=== PATIENT | female | born 2000 | race Two or more races ===

== ENCOUNTER 2024-06-16 06:13 | Emergency (ER) | payer MEDICAID, SELFPAY ==
[2024-06-16 06:15] VITALS: BMI 20.5
[2024-06-16 06:22] VITALS: BP 143/91; PULSE 71; RESP 18; TEMP 36.4; O2SAT 99
--- NOTE | 2024-06-16 06:28 | EDNOTE_ITS ---
<Statement entered by Jayashree Rodríguez MD - 06/16/24 17:31> As co-signing physician, I was present and available for consult prn. I concur with the plan and care as documented by the midlevel provider. ED Female Urogenital RME/HPI General Chief complaint: Urogenital-Female Stated complaint: PAINFUL URINATION Time Seen by Provider: 06/16/24 06:15 Source: patient Arrival date/time: 06/16/24 06:13 23-year-old female with no known medical history presents to the emergency room with a chief complaint of dysuria x 6 days. Patient states she was seen here a week ago for the same complaints was discharged with a UTI. Patient states her symptoms have returned. Mode of arrival: ambulatory Limitations: no limitations Related Data Previous Rx's ?Medication ?Instructions ?Recorded phenazopyridine 100 mg tablet 100 mg PO TID PRN pain # 12 tabs 06/16/24 sulfamethoxazole 800 1 tab PO BID #14 tabs mg-trimethoprim 160 mg tablet (Bactrim DS) Allergies Allergy/AdvReac Type Severity Reaction Status Date / Time No Known Allergies Allergy Verified 06/16/24 06:15 Review of Systems Review of Systems Systems Reviewed: All systems reviewed, normal except as documented Constitutional Constitutional: Reports system reviewed and no additional complaints, except as documented, Denies fatigue, Denies fever(s), Denies headache(s) and Denies weakness Eyes Eyes: Reports system reviewed and no additional complaints, except as documented, Denies blurry vision and Denies change in vision ENT Ears, Nose, Mouth, and Throat: Reports system reviewed and no additional complaints, except as documented, Denies otalgia, Denies headache(s), Denies nasal congestion, Denies throat swelling and Denies vertigo Cardiovascular Cardiovascular: Reports system reviewed and no additional complaints, except as documented, Denies chest pain, Denies dyspnea and Denies dyspnea on exertion Respiratory Respiratory: Reports system reviewed and no additional complaints, except as documented, Denies chest congestion, Denies cough, Denies dyspnea, Denies dyspnea on exertion and Denies wheezing Gastrointestinal Gastrointestinal: Reports system reviewed and no additional complaints, except as documented, Denies abdominal pain, Denies cramping, Denies nausea and Denies vomiting Genitourinary Genitourinary: Reports system reviewed and no additional complaints, except as documented, Reports dysuria, Denies hematuria, Denies vaginal discharge and Denies vaginal odor Musculoskeletal Musculoskeletal: Reports system reviewed and no additional complaints, except as documented and Denies back pain Integumentary/Breasts Skin/Breast: Reports system reviewed and no additional complaints, except as documented and Denies wounds Neurologic Neurologic: Reports system reviewed and no additional complaints, except as documented, Denies confusion, Denies headache(s), Denies lack of coordination, Denies vertigo and Denies weakness Psychiatric Psychiatric: Reports system reviewed and no additional complaints, except as documented, Denies anxiety, Denies confusion, Denies depression, Denies paranoia, Denies suicidal ideation and Denies tactile hallucinations Endocrine Endocrine: Reports system reviewed and no additional complaints, except as documented and Denies fatigue Hematologic/Lymphatic Hematologic/Lymphatic: Reports system reviewed and no additional complaints, except as documented and Denies lymphadenopathy Allergic/Immunologic Allergic/Immunologic: Reports system reviewed and no additional complaints, except as documented, Denies throat swelling, Denies urticaria and Denies wheezing Past Medical History Past Medical History CARDIAC: Negative Congestive Heart Failure RESPIRATORY: Negative Chronic Obstructive Pulmonary Disease (COPD) GENITOURINARY: Negative Renal Disease ENDOCRINE: Negative Diabetes Mellitus Type 1 or Diabetes Mellitus Type 2 Social History SMOKING STATUS: Never smoker ED Exam General Limitations: Present no limitations General appearance: Present alert and in no apparent distress Head Head exam: Present atraumatic Eye Eye exam: Present normal appearance, PERRL and EOMI ENT ENT exam: Present normal exam, normal oropharynx and mucous membranes moist Neck Neck exam: Present normal inspection, full ROM and trachea midline Chest Chest inspection: Present normal inspection and symmetric chest wall rise Respiratory Respiratory exam: Present normal lung sounds bilaterally Cardiovascular Cardiovascular exam: Present regular rate, normal rhythm and normal heart sounds Abdominal Exam Abdominal exam: Present soft and normal bowel sounds; Absent distention, tenderness, guarding, rebound or rigidity Extremities Exam Extremities exam: Present normal inspection and full ROM Back Exam Back exam: Present normal inspection and full ROM Neurological Exam Neurological exam: Present alert, oriented X3 and CN II-XII intact Psychiatric Psychiatric exam: Present normal affect and normal mood Skin Skin exam: Present warm, dry, intact and normal color Course Quality Measures none Orders Category Date Time Status Chlamydia/GC/TV - PCR Stat Lab 06/16/24 06:46 Completed Syphilis Stat Lab 02/12/25 06:50 Completed UA, C/S IF [Urinalysis, C/S if Indicated] Stat Lab 06/16/24 06:46 Completed Urine Culture Stat Lab 06/16/24 06:46 Received Vital Signs Vital signs: Vital Signs Temperature 97.6 F 06/16/24 06:22 Pulse Rate 71 06/16/24 06:22 Respiratory Rate 18 06/16/24 06:22 Blood Pressure 143/91 H 06/16/24 06:22 Pulse Oximetry (%) 99 06/16/24 06:22 Oxygen Delivery Method Room Air 06/16/24 06:22 O2 saturation 99% within normal limits Urogenital - Female MDM Narrative MDM Narrative:: 23-year-old female with no known medical history presents to the emergency room with a chief complaint of dysuria x 6 days. Patient states she was seen here a week ago for the same complaints was discharged with a UTI. Patient states her symptoms have returned. Patient is hemodynamically stable and in no apparent distress. Physical examination shows a soft nontender abdomen there is no right lower quadrant abdominal tenderness. Patient is complaining of dysuria and states she just finished her UTI treatment of Macrobid. Urinalysis was completed and patient still has a urinary tract infection. GC chlamydia and syphilis were both negative Patient was discharged with oral antibiotics and educated to follow-up with primary care provider and return to the emergency room for any evidence of worsening signs or symptoms Patient data External records reviewed:: [facility] previous records Clinical information provided by:: patient Social determinants that could affect healthcare access:: none Patient has the following chronic illnesses:: No chronic illness How is presenting disease/condition affected by chronic disease/condition?: no chronic disease Evaluation data The following diagnostics were reviewed and interpreted by me:: lab results and radiology exam(s) Lab and/or radiology exams considered but not ordered:: Labs and radiology exams considered and ordered Interpretation Summary: N/A Medications / Prescriptions Medications or Prescriptions considered but not ordered:: Rx given Medication administrations:: Rx given Consultations Consultation(s) initiated? (list below): No Diagnosis Urogenital Female Differential Diagnosis: urinary tract infection, bacterial vaginosis, trichomoniasis, cervicitis, vaginitis and cystitis Most likely diagnosis given after review of the tests above:: Urinary tract infection Admission Indicated Admission indicated?: not indicated Admission Request Was there a request for admission?: No Disposition Plan Disposition Plan: Discharge Discharge Attestation Discharge Attestation: The patient and all family members were given an opportunity to ask questions and understood the discharge instructions. Discharge instructions specifically effects, indications for sooner follow up or return to the emergency department, and the expected course of current diagnosis. Patient condition: Stable Discharge Plan Plan Patient Disposition: HOME (Self Care) Disposition Comment: Stable Prescriptions/Referrals Prescriptions/Med Rec: New sulfamethoxazole-trimethoprim [Bactrim DS] 800-160 mg tablet 1 tab PO BID Qty: 14 0RF phenazopyridine 100 mg tablet 100 mg PO TID PRN (Reason: pain) Qty: 12 0RF Referrals: Dillon Bernabe MD [Primary Care Provider] - In 1 week Problem List Clinical Impression: Urinary tract infection Patient/Caregiver Discharge Instructions Education Materials: ED CYSTITIS Female Adult Additional Instructions: Please follow-up with your primary care provider in the next 24 to 48 hours. Antibiotics were sent to your pharmacy please pick them up and take them as indicated. For any evidence of worsening signs or symptoms please return to the emergency room immediately Print Language: Faroese Stand Alone Forms: Jessika Award Info., Patient Portal Info Letter PA/SUPERINTENDENT STATIONS Supervising Physician PA/SUPERINTENDENT STATIONS Supervising Physician: Dr. RODRÍGUEZ
[2024-06-16 06:50] LABS: Collection Type, Urine Clean Catch
[2024-06-16 06:54] LABS: Bilirubin,Urine Negative (Negative); Blood,Urine 3+ (Negative); Clarity,Urine Turbid (Clear/Hazy); Color,Urine Lt-Yellow (Lt Yel-Yel); Glucose, Urine Negative (Negative); Ketones,Urine Negative (Negative); Leukocyte Esterase,Urine Positive (Negative); Nitrite,Urine Negative (Negative); PH,Urine 6.5 (5.0-7.0); Protein,Urine Trace (Neg - Trace); RBC,Urine 41 /hpf (0-3); Squamous Epithelial Cell,Urine < 1 /hpf (0-5); Urobilinogen,Urine Negative mg/dL (0.0-1.0); WBC,Urine 340 /hpf (0-5)
[2024-06-16 06:58] LABS: Culture Indicated,Urine Yes
[2024-06-16 07:45] LABS: Syphilis Nonreactive (Nonreactive)
[2024-06-16 11:00] LABS: Chlamydia trachomatis PCR Negative (Not Detect); Neisseria Gonorrhoeae DNA PCR Negative (Not Detect); Trichomonas Negative (Negative)
== END 2024-06-16 09:20 | disposition home or self-care (01) ==
PROVIDERS: Nurse Practitioner Family; Emergency Provider Emergency Medicine; PCP Family Medicine
DX: N39.0 Urinary tract infection, site not specified (principal)
CPT/HCPCS: 36415; 81001; 86780; 87086; 87491; 87591; 87661; 99283

== ENCOUNTER 2025-01-14 22:11 | Emergency (ER) | payer MEDICAID, SELFPAY ==
[2025-01-14 22:13] VITALS: BMI 18.8
[2025-01-14 22:25] VITALS: BP 117/76; PULSE 81; RESP 16; TEMP 37; O2SAT 99
--- NOTE | 2025-01-14 22:38 | PD.EDNV ---
Nausea/Vomit./Diarrhea-RME/HPI General Chief complaint: Abdominal Pain Stated complaint: LOWER ABDOMINAL CRAMPING WITH DIARRHEA Time Seen by Provider: 01/14/25 22:31 Arrival date/time: 01/14/25 22:11 24F with no significant PMH (patient denies alcohol abuse per chart) presents to ED with 1 week of intermittent ab cramping/pain. Today, there was some N/V and possibly blood in diarrhea. Patient denies dysuria and vaginal bleeding. Limitations: no limitations Related Data Previous Rx's ?Medication ?Instructions ?Recorded phenazopyridine 100 mg tablet 100 mg PO TID PRN pain #12 tabs 06/16/24 sulfamethoxazole 800 1 tab PO BID #14 tabs 06/16/24 mg-trimethoprim 160 mg tablet (Bactrim DS) Allergies Allergy/AdvReac Type Severity Reaction Status Date / Time No Known Allergies Allergy Verified 06/16/24 06:15 Review of Systems Review of Systems Systems Reviewed: All systems reviewed, normal except as documented Gastrointestinal Gastrointestinal: Reports as per HPI, Reports abdominal pain, Reports diarrhea, Reports hematochezia, Reports nausea and Reports vomiting Past Medical History Past Medical History CARDIAC: Negative Congestive Heart Failure RESPIRATORY: Negative Chronic Obstructive Pulmonary Disease (COPD) GENITOURINARY: Negative Renal Disease ENDOCRINE: Negative Diabetes Mellitus Type 1 or Diabetes Mellitus Type 2 Social History SMOKING STATUS: Never smoker ED Exam General Limitations: Present no limitations General appearance: Present alert and in no apparent distress Head Head exam: Present atraumatic Neck Neck exam: Present normal inspection, full ROM and trachea midline Chest Chest inspection: Present normal inspection and symmetric chest wall rise Abdominal Exam Abdominal exam: Present soft and normal bowel sounds Neurological Exam Neurological exam: Present alert and oriented X3 Skin Skin exam: Present warm, dry, intact and normal color Course Quality Measures none Vital Signs Vital signs: Vital Signs Temperature 98.6 F 01/14/25 22:25 Pulse Rate 81 01/14/25 22:25 Respiratory Rate 16 01/14/25 22:25 Blood Pressure 117/76 01/14/25 22:25 Pulse Oximetry (%) 99 01/14/25 22:25 Oxygen Delivery Method Room Air 01/14/25 22:25 O2 at 99% on RA and WNL Nausea/Vomiting/Diarrhea MDM Narrative MDM Narrative:: 24F with no significant PMH (patient denies alcohol abuse per chart) presents to ED with 1 week of intermittent ab cramping/pain. Today, there was some N/V and possibly blood in diarrhea. Patient denies dysuria and vaginal bleeding. Physical exam reveals no ab tenderness. Patient is afebrile, calm, and alert. Hazardous Substances Engineer given. Patient data External records reviewed:: [facility] previous records Clinical information provided by:: patient Social determinants that could affect healthcare access:: none Patient has the following chronic illnesses:: none How is presenting disease/condition affected by chronic disease/condition?: no chronic disease Evaluation data The following diagnostics were reviewed and interpreted by me:: other (specify) (none) Lab and/or radiology exams considered but not ordered:: not ordered Interpretation Summary: n/a Medications / Prescriptions Medications / Prescriptions considered but not ordered:: not ordered Medication administrations:: n/a Consultations Consultation(s) initiated? (list below): No Diagnosis Nausea Differential Diagnosis: traveler's diarrhea, food poisoning, gastroenteritis, clostridium difficile infection, drug-induced nausea and vomiting and dehydration Most likely diagnosis given after review of the tests above:: gastroenteritis Admission Indicated Admission indicated?: not indicated Admission Request Was there a request for admission?: No Disposition Plan Disposition Plan: Discharge Discharge Attestation Discharge Attestation: The patient and all family members were given an opportunity to ask questions and understood the discharge instructions. Discharge instructions specifically effects, indications for sooner follow up or return to the emergency department, and the expected course of current diagnosis. Patient condition: Stable Discharge Plan Plan Patient Disposition: HOME (Self Care) Discharge Disposition comment: Stable Prescriptions/Referrals Prescriptions/Med Rec: No Action sulfamethoxazole-trimethoprim [Bactrim DS] 800-160 mg tablet 1 tab PO BID Qty: 14 0RF phenazopyridine 100 mg tablet 100 mg PO TID PRN (Reason: pain) Qty: 12 0RF Problem List Clinical Impression: Gastroenteritis Patient/Caregiver Discharge Instructions Education Materials: ED Diarrhea, Viral (Adult), ED Gastroenteritis, Noninfectious Additional Instructions: Please follow-up with PCP within 24-48 hours and return immediately if symptoms worsen. See PCP for additional evaluation including possible referral GI and or stool testing. Print Language: Ghanaian Stand Alone Forms: Patient Portal Info Letter SIRI/JESS Supervising Physician SIRI/JESS Supervising Physician: Dr. Pacheco
== END 2025-01-14 22:40 | disposition home or self-care (01) ==
LOC: SERX 22:49
PROVIDERS: Emergency Provider Emergency Medicine
DX: K52.9 Noninfective gastroenteritis and colitis, unspecified (principal)
CPT/HCPCS: 99281

== ENCOUNTER 2025-01-30 01:14 | Inpatient (IN) | payer MEDICAID, SELFPAY ==
[2025-01-30] VITALS (7 sets, daily range): BP systolic 102–120; BP diastolic 47–80; PULSE 80–117; RESP 15–20; TEMP 36.2–36.9; O2SAT 98–99; BMI 18.3
--- NOTE | 2025-01-30 02:17 | EKG_ITS ---
[facility] Test Date: 2025-01-30 Pat Name: JONATHON LIZAMA Department: Room: - Gender: Female Inventory Control Supervisor: : [id number] Requested By: Adam Mark Order Number: [id number] Reading MD: Adam Mark Measurements Intervals [place] Rate: 93 P: 79 IA: 142 QRS: 91 QRSD: 81 T: 68 QT: 321 QTc: 400 Interpretive Statements SINUS RHYTHM BORDERLINE RIGHT AXIS DEVIATION [QRS AXIS > 90] No previous ECG available for comparison /store/S0/[id number].pdf
--- NOTE | 2025-01-30 02:17 | XR_ITS ---
Examination: CT abdomen and pelvis without contrast. Coronal 3-D reconstructions. Sagittal 2-D reconstructions. Date and time of exam:January 30, 2025, 0344 hrs., Comparison April 23, 2023 Indications: Abdominal pain nausea vomiting diarrhea today CTDI: vol (mGy): 4.63 DLP: (mGycm): 237 Technique: Axial images of the abdomen have been obtained, 3 mm slice thickness Intravenous contrast material has not been administered. Low dose protocols were performed. One or more of the following dose reduction techniques were used; automated exposure control, adjustment of the mA and/or KV according to patient size, use of iterative reconstruction technique. Findings: No focal liver or splenic lesions No gallstones No pancreatic mass No renal or ureteral calculi, no hydronephrosis Small lymph nodes in the right lower mesentery Significant wall thickening and inflammatory change involving the colon No pericecal inflammatory change Mild to moderate free fluid in the pelvis Thickening of the rectal wall, likely proctitis pattern The osseous structures are intact Impression: Diffuse significant colitis pattern including thickening of the rectal wall, proctitis pattern, differential would include ulcerative colitis, Crohn's disease, consider colonoscopy follow-up
--- NOTE | 2025-01-30 02:18 | PD.EDRME ---
Rapid Medical Screening Exam RME Arrival date/time: 01/30/25 01:14 This is a case of 24-year-old female with no medical history came into the emergency room due to generalized abdominal pain associated with nausea vomiting palpitation and blood in stool worsening of the symptoms this patient decided to start consulted in the emergency room Chief Complaint: General Adult/Misc Complain Time Seen by Provider: 01/30/25 01:34 Vital signs: Vital Signs Temperature 98.4 F 01/30/25 02:08 Pulse Rate 94 01/30/25 02:08 Respiratory Rate 20 01/30/25 02:08 Blood Pressure 102/66 01/30/25 02:08 Pulse Oximetry (%) 98 01/30/25 02:08
[2025-01-30 02:55] LABS: Basophils # (Auto) 0.1 Thou/mm3 (0.0-0.2); Basophils % (Auto) 1 % (0-2.5); Eosinophils # (Auto) 0.1 Thou/mm3 (0.0-0.5); Eosinophils % (Auto) 1 % (0-10); Hematocrit 30.3 % (36.0-46.0); Hemoglobin 9.9 g/dL (12.0-16.0); Immature Granulocytes Auto 0.02 Thou/mm3 (0.00-0.00); Lymphocytes # (Auto) 1.3 Thou/mm3 (1.0-4.8); Lymphocytes % (Auto) 14 % (10-50); Mean Corpuscular HGB Conc 32.7 g/dl (31.0-37.0); Mean Corpuscular Hemoglobin 27.8 pg (25.0-35.0); Mean Corpuscular Volume 85 fL (80-100); Monocytes # (Auto) 0.8 Thou/mm3 (0.0-0.8); Monocytes % (Auto) 9 % (0-12); Neutrophils # (Auto) 7.3 Thou/mm3 (1.8-7.7); Neutrophils % (Auto) 75 % (37-80); Nucleated Red Blood Cell # 0.00 Thou/mm3 (0.00-0.00); Nucleated Red Blood Cell % 0 /100 WBC (0); Platelet Count 412 Thou/mm3 (140-440); RDW Standard Deviation 38.3 fL (36.4-46.3); Red Blood Count 3.56 Miln/mm3 (4.00-5.20); White Blood Count 9.7 Thou/mm3 (3.6-11.0)
[2025-01-30 03:22] LABS: Collection Type, Urine Clean Catch
[2025-01-30 03:22] LABS: Alanine Aminotransferase 19 U/L (10-49); Albumin, Serum 4.1 gm/dL (3.5-5.0); Albumin/Globulin Ratio 1.5 (1.2-2.2); Alkaline Phosphatase 51 U/L (46-116); Anion Gap 9 (7-16); Aspartate Amino Transferase 19 U/L (0-34); BUN/Creatinine Ratio 7 Ratio (12-20); Bilirubin,Total 0.3 mg/dL (0.3-1.2); Blood Urea Nitrogen < 5 mg/dL (9-23); Calcium 9.2 mg/dL (8.3-10.6); Calcium (Corrected) 9.2 mg/dL (8.5-10.1); Carbon Dioxide 23.5 mMol/L (20.0-31.0); Chloride 103 mMol/L (98-107); Creatinine (Component) 0.7 mg/dL (0.6-1.3); Estimated Creatinine Clearance 97.6 mL/min (>60); Globulin 2.8 gm/dL (2.3-3.5); Glucose 100 mg/dL (74-106); Lipase 22 U/L (12-53); Osmolality,Calculated 267 (275-295); Potassium 4.4 mMol/L (3.4-5.1); Sodium 135 mMol/L (136-145); Thyroid Stimulating Hormone 1.54 uIU/mL (0.55-4.78); Total Protein 6.9 gm/dL (5.7-8.2); Troponin I < 0.002 ng/mL (0.0-0.045); eGFR > 60 See Note
[2025-01-30 03:26] LABS: HCG Qualitative,Urine Negative
[2025-01-30 03:27] LABS: Bilirubin,Urine Negative (Negative); Blood,Urine Negative (Negative); Clarity,Urine Clear (Clear/Hazy); Color,Urine Lt-Yellow (Lt Yel-Yel); Glucose, Urine Negative (Negative); Ketones,Urine 2+ (Negative); Leukocyte Esterase,Urine Negative (Negative); Nitrite,Urine Negative (Negative); PH,Urine 6.5 (5.0-7.0); Protein,Urine Negative (Neg - Trace); RBC,Urine 2 /hpf (0-3); Specific Gravity,Urine 1.011 (1.001-1.035); Squamous Epithelial Cell,Urine 2 /hpf (0-5); Urobilinogen,Urine Negative mg/dL (0.0-1.0); WBC,Urine 2 /hpf (0-5)
--- NOTE | 2025-01-30 04:41 | PRELIM_ITS ---
CT scan of the abdomen and pelvis without intravenous contrast (axial sections with sagittal and coronal reformats) January 30, 2025 0344 hours Clinical History: abd pain Comparison: No prior study is available for comparison at the time of interpretation Findings: Study is limited without IV contrast. Small calcified pulmonary granuloma is seen in left lower lobe. The liver, gallbladder, pancreas, spleen, kidneys and adrenals are unremarkable on this noncontrast study. No evidence of bowel obstruction. There is diffuse circumferential wall thickening of colon with pericolonic fat stranding, most severe in the descending and sigmoid colon. Circumferential wall thickening also noted of the rectum. The appendix is within normal limits (images [id number]). There is no mesenteric or retroperitoneal adenopathy. The aorta is unremarkable. The urinary bladder is unremarkable. The uterus is unremarkable. Vaginal pessary device is noted. There is mild ascites. No free air is seen. The osseous structures are unremarkable. Umbilical jewelry noted. Impression: Findings suggestive of acute pancolitis and proctitis with most severe involvement of the descending and sigmoid colon. Recommend clinical correlation. No evidence of bowel obstruction or free air. Mild ascites. Report Electronically Signed By: John Pereyra 01/30/2025 4:41:13 AM [EST]
--- NOTE | 2025-01-30 04:50 | PD.EDNV ---
Nausea/Vomit./Diarrhea-RME/HPI General Chief complaint: General Adult/Misc Complain Stated complaint: ABD PAIN NVD MULTIPLE OTHER COMPLAINTS Time Seen by Provider: 01/30/25 01:34 Arrival date/time: 01/30/25 01:14 RME / HPI RME / HPI Narrative: 01/30/25 01:14 This is a case of 24-year-old female with no medical history came into the emergency room due to generalized abdominal pain associated with nausea vomiting palpitation and blood in stool worsening of the symptoms this patient decided to start consulted in the emergency room DR. CANALES MAIN ED EVALUATION: Patient with ongoing occasional bloody diarrhea for approximately 3-4 weeks duration reports having been seen at outside ED and diagnosed with colitis, although no specific therapy initiated. Patient referred to PMD who prescribed Vancomycin, and recently Cefdinir and Flagyl. Reports ongoing diffuse abdominal pain and cramping. No fever or chills although nausea without emesis reported. PMH: Negative. PSH: None. Related Data Previous Rx's ?Medication ?Instructions ?Recorded phenazopyridine 100 mg tablet 100 mg PO TID PRN pain #12 tabs 06/16/24 sulfamethoxazole 800 1 tab PO BID #14 tabs 06/16/24 mg-trimethoprim 160 mg tablet (Bactrim DS) Allergies Allergy/AdvReac Type Severity Reaction Status Date / Time No Known Allergies Allergy Verified 01/30/25 01:17 Review of Systems Review of Systems Systems Reviewed: All systems reviewed, normal except as documented ED Exam Narrative Physical exam: GEN. APPEARANCE: The patient is alert awake oriented X-3 in no distress, lying down comfortably, does not look ill/toxic. Patient has good eye contact. Patient is cooperative. Notably tachycardic. VITALS: All vitals were reviewed and the pulse ox is 99% on room air which is normal according to my interpretation. HEENT: Normocephalic, atraumatic. Pupils are equal and reactive. Oral mucosa is moist. Patent Nares NECK: Supple, nontender, no thyromegaly, no meningismus, no JVD, no step offs CHEST: Symmetrical, atraumatic, and with equal expansion , Nontender on palpation no deformity and no crepitus. CARDIOVASCULAR: Tachycardic, no murmur or gallop rub or extra beats. LUNGS: Clear to auscultation bilaterally with symmetrical chest rise. No laboring tachypnea or wheezing. No intercostal subcostal retraction. No rales and no rhonchi. ABDOMEN: Soft, Diffusely tender predominantly in lower quadrants, noted guarding, or rebound tenderness. There are no abnormal masses palpated. Active and normal bowel sounds. EXTREMITIES: Nontender. No edema. No cyanosis. Patient is able to move all 4 extremities well, with full ROM and good CSM. SKIN: Warm and dry, no jaundice or rashes noted. MUSCULOSKELETAL: No lubar or midline bony tenderness. There is no CVA tenderness. No paraspinal muscle spasm or tenderness. NEURO: Patient is PATRICK x 4, Cranial nerves II through XII grossly intact. There is no focal neurologic deficits noted. GCS is 15, PNS and [employer]ING [employer]LYST appear grossly intact. PSYCHIATRIC: Patient is in normal mood and affect, cooperative, no SI or HI or hallucinations. Course Quality Measures none Orders Category Date Time Status EKG (ED ONLY) *Do not use* NOW Care 01/30/25 02:[address] abdomen pelvis wo con Stat Exams 01/30/25 02:17 Taken EKG (ED Only) Stat Exams 01/30/25 02:17 Draft CBC Stat Lab 01/30/25 02:37 Completed Comprehensive Metabolic Panel Stat Lab 01/30/25 02:37 Completed HCG Qualitative,Urine Stat Lab 01/30/25 03:05 Completed Lipase Stat Lab 01/30/25 02:37 Completed TSH [Thyroid Stimulating Hormone] Stat Lab 01/30/25 02:37 Completed Troponin I Stat Lab 01/30/25 02:37 Completed Urinalysis Stat Lab 01/30/25 03:05 Completed Levofloxacin/D5w 500 mg Ivpb [Levaquin Ivpb] Med 01/30/25 04:52 Discontinued 500 mg in 100 ml IV X1 Morphine* Inj Med 01/30/25 04:54 Discontinued 4 mg IVP X1 ONE Prochlorperazine Inj [Compazine Inj] Med 01/30/25 04:52 Discontinued 5 mg IV X1 ONE Sodium Chloride 0.9% 1000 ml [Ns] 1,000 ml Med 01/30/25 04:52 Discontinued IV 999 mls/hr metroNIDAZOLE/NS 500 MG IVPB [Flagyl 500 mg IV] Med 01/30/25 04:54 Discontinued 500 mg in 100 ml IV X1 Vital Signs Vital signs: Vital Signs Temperature 98.4 F 01/30/25 02:08 Pulse Rate 94 01/30/25 02:08 Respiratory Rate 20 01/30/25 02:08 Blood Pressure 102/66 01/30/25 02:08 Pulse Oximetry (%) 98 01/30/25 02:08 Nausea/Vomiting/Diarrhea MDM Narrative MDM Narrative:: Scribe Attestation: Dilma Elizalde, am scribing for and in the presence of Dr. Canales. Provider Notation: Although this document has been carefully reviewed, there may still be some phonetic and other typographical errors. These errors are purely grammatical due to imperfections in the software program and should not be construed in any way to compromise the substance of the patient's medical care during this visit. Patient with ongoing occasional bloody diarrhea for approximately 3-4 weeks duration reports having been seen at outside ED and diagnosed with colitis, although no specific therapy initiated. Patient referred to PMD who prescribed Vancomycin, and recently Cefdinir and Flagyl. Please see PE findings. Laboratory markers and serum chemistries essentialy unremarkable. CT scan shows evidence of diffuse pancolitis. Patient IV established and patient hydrated with NS to correct volume deficit, and administered dual ABX in addition to low-dose IV narcotic analgesics and anti-emetics. Consulted with hospitalist who agrees to admit. Final diagnosis is pancolitis. Patient data External records reviewed:: [facility] previous records (Reviewed prior ED records from 01/14/25. Patient was seen for Gastroenteritis.) Clinical information provided by:: patient Social determinants that could affect healthcare access:: none Patient has the following chronic illnesses:: None reported How is presenting disease/condition affected by chronic disease/condition?: no chronic disease Evaluation data The following diagnostics were reviewed and interpreted by me:: lab results, radiology exam(s) and EKG tracing(s) (EKG shows sinus rhythm, rate of 93 bpm, no ST segment changes, right axis deviation, no ventricular ectopy, per my interpretation.) Lab and/or radiology exams considered but not ordered:: None Interpretation Summary: RADIOLOGY Abdomen/Pelvis CT: Findings: Study is limited without IV contrast. Small calcified pulmonary granuloma is seen in left lower lobe. The liver, gallbladder, pancreas, spleen, kidneys and adrenals are unremarkable on this noncontrast study. No evidence of bowel obstruction. There is diffuse circumferential wall thickening of colon with pericolonic fat stranding, most severe in the descending and sigmoid colon. Circumferential wall thickening also noted of the rectum. The appendix is within normal limits (images [id number]). There is no mesenteric or retroperitoneal adenopathy. The aorta is unremarkable. The urinary bladder is unremarkable. The uterus is unremarkable. Vaginal pessary device is noted. There is mild ascites. No free air is seen. The osseous structures are unremarkable. Umbilical jewelry noted. Impression: Findings suggestive of acute pancolitis and proctitis with most severe involvement of the descending and sigmoid colon. Recommend clinical correlation. No evidence of bowel obstruction or free air. Mild ascites. Medications / Prescriptions Medications / Prescriptions considered but not ordered:: None Medication administrations:: Medication Administration History Sodium Chloride (Ns) 1,000 mls @ 100 mls/hr IV .Q10H NENITA Stop: 03/01/25 05:59 Ondansetron HCl (Ondansetron Inj 2 Mg/Ml Inj 2 Ml) 4 mg IVP Q6H PRN; Protocol PRN Reason: NAUSEA OR VOMITING Stop: 03/01/25 05:48 Discontinued Medications Levofloxacin/Dextrose (Levaquin Ivpb) 500 mg in 100 mls @ 100 mls/hr IV X1 ONE Stop: 01/30/25 05:51 Metronidazole (Flagyl 500 Mg Iv) 500 mg in 100 mls @ 100 mls/hr IV X1 ONE Stop: 01/30/25 05:53 Sodium Chloride (Ns) 1,000 mls @ 999 mls/hr IV .Q1H1M ONE Stop: 01/30/25 05:52 Morphine Sulfate (Morphine Sulf Inj 4 Mg/Ml Vial) 4 mg IVP X1 ONE Stop: 01/30/25 04:55 Prochlorperazine Edisylate (Prochlorperazine Inj 5 Mg/Ml Vial 2 Ml) 5 mg IV X1 ONE; Protocol Stop: 01/30/25 04:53 See above if any Consultations Consultation(s) initiated? (list below): Yes Consultation #1 (Physician, Specialty, Details): Discussed with resident physician for Dr. Garcia for admission. Reviewed the patient?s HPI, PMHx, lab and/or radiology results. Discussed treatment plan. Will consult an admission to the hospitalist. Diagnosis Nausea Differential Diagnosis: traveler's diarrhea, food poisoning, gastroenteritis, clostridium difficile infection and dehydration Most likely diagnosis given after review of the tests above:: Pancolitis Admission Indicated Admission indicated?: not indicated Explain why admission is indicated or not indicated:: Severe pancolitis Admission Request Was there a request for admission?: Yes Admission Attestation Admission request attestation: Discussed case with [] from Hospitalist service regarding admission. Discussed patients ED course, exam findings, labs, and radiology results. The Hospitalist [agrees,declines] to accept the patient for admission. Disposition Plan Disposition Plan: Admit Discharge Plan Plan Patient Disposition: Admit Acute Care w/in Hospital Problem List Clinical Impression: Pancolitis
--- NOTE | 2025-01-30 06:01 | PD.RESHP ---
Documentation for date of: 01/30/25 [facility] History of Present Illness History of present illness: Patient is 24 years old no significant past medical history presented to [facility] on 01/30/2025 with chief complaint of diarrhea. The patient presents with a 1-month history of left lower quadrant abdominal pain associated with watery diarrhea and nausea. Over the past 3 weeks, she reports the development of bloody diarrhea, with an estimated 10 bowel movements per day. She notes partial improvement in her diarrhea after transitioning from solid foods to a liquid diet. She also reports an unintentional weight loss of approximately 10 pounds over the past few months, attributed to ongoing diarrhea. The patient recently went to [facility], where she first began experiencing abdominal pain and bloody diarrhea, though no medical intervention was pursued at the time. Upon return, she visited her primary care provider and was initially prescribed oral vancomycin, followed by cefdinir and metronidazole. She has been taking vancomycin for 5 days, and cefdinir and metronidazole for 1 day, with subjective improvement in her symptoms since starting the medications. She also endorses a chronic history of recurrent urinary tract infections, averaging 3?5 episodes per year. Although she was referred to a urologist, she did not follow up with the appointment. She denies fever, chills, recent sick contacts, rashes, arthropathy, or visual changes. ED Course: -Initial vitals were BP 108/66, pulse 94, respiratory 20, temp 38.4, O2 sat 99% on room air. -Labs are unremarkable -Imaging included abdominal/pelvis CT showed diffuse significant colitis pattern including of the rectal wall -In the ED, patient was given morphine 4 mg x 1, 1 L NS, metronidazole 5 mg x 1 -Patient was admitted for colitis evaluation and management Review of Systems Review of systems otherwise negative except what is mentioned above. Past Medical History: Anemia Family History: Aunt has ulcerative colitis Surgical History: Social History: Denies history of smoking, denies current alcohol use, denies recreational drug use Current Medications: Flagyl, vancomycin, cefdinir Allergies: No known drug allergies Exam Vital Signs Temp Pulse Resp BP Pulse Ox 98.4 F 94 20 102/66 98 01/30/25 02:08 01/30/25 02:08 01/30/25 02:08 01/30/25 02:08 01/30/25 02:08 Narrative Exam General: Alert, no acute distress.Conversational and non-toxic appearing. Skin: Warm, dry, intact. No rash or ecchymoses. Head: Normocephalic, atraumatic. Eye: Normal conjunctiva, PERRL. Throat: Oral mucosa moist. No obvious lesions in oropharynx. Cardiovascular: Regular rate and rhythm, no murmur, +S1/S2. Respiratory: Lungs are clear to auscultation, respirations unlabored, no crackles, no wheezing. Gastrointestinal: Soft, left lower quadrant tenderness, non-distended. No guarding or rebound tenderness. Extremities: No edema, no cyanosis, no clubbing. Neuro: Alert and oriented x3.No focal deficits observed. Conversant, moving all extremities. No overt cerebellar signs/incoordination. Psychiatric: Cooperative, appropriate affect Results: Labs 01/31/25 05:20 01/31/25 05:20 Labs: Short CBC 01/30/25 Range/Units 02:37 WBC 9.7 (3.6-11.0) Thou/mm3 Hgb 9.9 L (12.0-16.0) g/dL Hct 30.3 L (36.0-46.0) % Plt Count 412 (140-440) Thou/mm3 BMP 01/30/25 02:37 Sodium 135 L Potassium 4.4 Chloride 103 Carbon Dioxide 23.5 BUN < 5 L Creatinine 0.7 Glucose 100 Calcium 9.2 Cardiac Enzymes 01/30/25 Range/Units 02:37 Troponin I < 0.002 (0.0-0.045) ng/mL Liver Function 01/30/25 Range/Units 02:37 Total Bilirubin 0.3 (0.3-1.2) mg/dL AST 19 (0-34) U/L ALT 19 (10-49) U/L Alkaline Phosphatase 51 (46-116) U/L Albumin 4.1 (3.5-5.0) gm/dL Urine 01/30/25 Range/Units 03:05 Urine Color Lt-Yellow (Lt Yel-Yel) Urine Clarity Clear (Clear/Hazy) Urine pH 6.5 (5.0-7.0) Ur Specific [place] 1.011 (1.001-1.035) Urine Protein Negative (Neg - Trace) Urine Glucose (UA) Negative (Negative) Quality Measures Quality Measures none Medications Home Medications and Allergies Home Medications ?Medication ?Instructions ?Recorded ?Confirmed ?Type cefdinir 300 mg capsule 300 mg PO BID 01/30/25 01/30/25 History metronidazole 500 mg tablet 500 mg PO TID 01/30/25 01/30/25 History vancomycin 125 mg capsule 125 mg PO Q6H 01/30/25 01/30/25 History Allergies Allergy/AdvReac Type Severity Reaction Status Date / Time No Known Allergies Allergy Verified 01/30/25 01:17 Visit Medications Sodium Chloride (Ns) 1,000 mls @ 100 mls/hr IV .Q10H NENITA Stop: 03/01/25 05:59 Ondansetron HCl (Ondansetron Inj 2 Mg/Ml Inj 2 Ml) 4 mg IVP Q6H PRN; Protocol PRN Reason: NAUSEA OR VOMITING Stop: 03/01/25 05:48 Discontinued Medications Levofloxacin/Dextrose (Levaquin Ivpb) 500 mg in 100 mls @ 100 mls/hr IV X1 ONE Stop: 01/30/25 05:51 Metronidazole (Flagyl 500 Mg Iv) 500 mg in 100 mls @ 100 mls/hr IV X1 ONE Stop: 01/30/25 05:53 Sodium Chloride (Ns) 1,000 mls @ 999 mls/hr IV .Q1H1M ONE Stop: 01/30/25 05:52 Morphine Sulfate (Morphine Sulf Inj 4 Mg/Ml Vial) 4 mg IVP X1 ONE Stop: 01/30/25 04:55 Prochlorperazine Edisylate (Prochlorperazine Inj 5 Mg/Ml Vial 2 Ml) 5 mg IV X1 ONE; Protocol Stop: 01/30/25 04:53 Assessment & Plan Plan Patient is 24 years old no significant past medical history presented to [facility] on 01/30/2025 with chief complaint of 3 weeks of bloody diarrhea. Admitted for evaluation and management of possible pancolitis #Pancolitis #Bloody diarrhea #Abdominal pain #Concern for inflammatory bowel disease DDx: Ulcerated colitis vs infectious colitis vs C. difficile versus proctitis The patient presents with a 1-month history of diarrhea, which has progressed to bloody diarrhea over the past 3 weeks. The subacute to chronic nature of symptoms, in the absence of fever, leukocytosis, or systemic signs of infection, makes an infectious etiology less likely. Additionally, the patient denies uveitis, arthropathy, or skin lesions, though these are not required for the diagnosis of inflammatory bowel disease.Given the chronic bloody diarrhea, family history of UC, and lack of systemic infectious features, the presentation is highly suggestive of UC. The presence of rectal wall thickening on CT may also indicate proctitis, which is a common and localized form of UC. However, the recent use of multiple antibiotics (including vancomycin and metronidazole), raises concern for C.diff colitis as a possible superimposed or alternative diagnosis. Stool testing for C. difficile toxin is warranted to rule this out CT abdominal/pelvis shows: Significant wall thickening and inflammatory change involving the colon, iffuse significant colitis pattern including thickening of the rectal wall, proctitis pattern, - Started NS at 100mls/hr - Calprotectin stool - ERIKA w reflex study - Stool culture - Ova and parasite - Giardia antigen EIA - Zofran 4 mg as needed for nausea/vomit #Normocytic anemia Low H&H is like secondary to GI loss. Patient does report a history anemia. Globin 9.9 and hematocrit 30.3, MCV 85 - Continue to monitor H&H Disposition: Med/tele for management and evaluation pancolitis CODE STATUS: Full code Patient seen and assessed under supervision of attending physician Dr.Alhalaibeh Anuradha Ricardo MD PGY-1, Internal Medicine Please note: this document was transcribed using voice recognition technology; minor inaccuracies may be present. Attending Provider Attestation/Addendum After examination of the patient and review of the clinical data I feel that this patient needs admission to the hospital for further treatment/evaluation. Plan of care discussed with patient and is in agreement. I Mariel Garcia MD, attest that I was physically present for aranda portions of evaluation, and examined patient, labs and imagings and plan of care were discussed with IM residents team, and I agree with the findings and plans documented above.
[2025-01-30] MEDS: SODIUM CHLORIDE 0.9% 1000 ML 1,000 ML 999 ML IV (07:44)
[2025-01-30] MEDS: PROCHLORPERAZINE INJ 5 MG/ML VIAL 2 ML IV (07:45)
[2025-01-30] MEDS: MORPHINE SULF INJ 4 MG/ML VIAL IVP (07:49)
[2025-01-30] MEDS: LEVOFLOXACIN/D5W 500 MG IVPB 500 MG/100 ML BAG 100 MG IV (07:53)
[2025-01-30] MEDS: metroNIDAZOLE/NS 500 MG IVPB 500 MG/100 ML BAG 100 MG IV (07:53)
--- NOTE | 2025-01-30 08:06 | PC.NURSE ---
ASSUMED CARE OF PT FROM [facility] SHIFT NURSE CHELO HAILE. PT IS A/O X4. PT IN LAST NIGHT FOR ABD PAIN, N/V/D FOR THE LAST 2 WEEKS. PT STATES THAT SHE DID GO SEE HER MD AND WAS RECEIVED A RX FOR ABX BUT CON'T WITH THE PAIN, N/V/D SO SHE CAME IN FOR EVALUATION. PT WAS STARTED ON MEDS ORDERED BY PROVIDER AND SIG OTHER AT BEDSIDE. PT STABLE AT THIS TIME.
[2025-01-30 09:32] LABS: Iron 14 mcg/dL (50-170); Percent Iron Saturation 3 % (20-55); Total Iron Binding Capacity 367 mcg/dL (250-425); Unsaturated Iron Binding 353 (225-295)
[2025-01-30] MEDS: SODIUM CHLORIDE 0.9% 1000 ML 1,000 ML 100 ML IV ×2 (11:56→21:26)
[2025-01-30] MEDS: IRON SUCROSE CPLX INJ 20 MG/ML VIAL 5 ML 200 MG IVP (11:57)
[2025-01-30 12:20] LABS: Clostridium Difficile PCR Negative (Negative)
--- NOTE | 2025-01-30 13:08 | PD.RESPRO ---
Documentation for date of: 01/30/25 Subjective Subjective Interval history: No overnight events. This morning pt continues to endorse 8/10 b/l lower quadrant abdominal pain that worsens with palpation, palliated with morphine, with associated nausea/vomiting and intermittent lightheadedness. Otherwise denies chest pain, palpitations, constipation, fever, chills, arthropathy, visual changes. ROS negative except as noted above. Exam Vital Signs Temp Pulse Resp BP Pulse Ox O2 Del Method 97.3 F 90 16 106/57 L 99 Room Air 01/30/25 12:00 01/30/25 12:00 01/30/25 12:00 01/30/25 12:00 01/30/25 12:00 01/30/25 12:00 Narrative Exam General: AOx3, no acute distress, able to speak full sentences HEENT: NC/AT, mucous membranes moist, bilateral sclera anicteric Cardiovascular: regular rate and rhythm, S1/S2 present, no murmurs appreciated Pulmonary: clear to auscultation bilaterally, no rales/rhonchi/wheezes Abdominal: soft, b/l lower quadrant TTP, non-distended, no rebound/guarding, normal bowel sounds present Musculoskeletal: normal ROM Skin: warm and dry, intact, no rashes Neuro: CN II-XII intact, no focal deficits Objective Labs 01/31/25 05:20 01/31/25 05:20 Labs: Laboratory Results - last 24 hr 01/30/25 01/30/25 01/30/25 02:37 03:05 06:00 WBC 9.7 RBC 3.56 L Hgb 9.9 L Hct 30.3 L MCV 85 MCH 27.8 MCHC 32.7 RDW Std Deviation 38.3 Plt Count 412 Neut % (Auto) 75 Lymph % (Auto) 14 [place] % (Auto) 9 Eos % (Auto) 1 Baso % (Auto) 1 Neut # (Auto) 7.3 Lymph # (Auto) 1.3 [place] # (Auto) 0.8 Eos # (Auto) 0.1 Baso # (Auto) 0.1 Immature Gran # (Auto) 0.02 H Absolute Nucleated RBC 0.00 Immature Gran % 0 Nucleated RBC % 0 Sodium 135 L Potassium 4.4 Chloride 103 Carbon Dioxide 23.5 Anion Gap 9 BUN < 5 L Creatinine 0.7 Estim Creat Clear Calc 97.6 eGFR > 60 BUN/Creatinine Ratio 7 L Glucose 100 Calculated Osmolality 267 L Calcium 9.2 Corrected Calcium 9.2 Iron TIBC Iron Saturation Unsat Iron Binding Total Bilirubin 0.3 AST 19 ALT 19 Alkaline Phosphatase 51 Troponin I < 0.002 Total Protein 6.9 Albumin 4.1 Globulin 2.8 Albumin/Globulin Ratio 1.5 Lipase 22 TSH 1.54 Ur Collection Type Clean Catch Urine Color Lt-Yellow Urine Clarity Clear Urine pH 6.5 Ur Specific [place] 1.011 Urine Protein Negative Urine Glucose (UA) Negative Urine Ketones 2+ A Urine Blood Negative Urine Nitrite Negative Urine Bilirubin Negative Urine Urobilinogen (Auto) Negative Ur Leukocyte Esterase Negative Urine RBC 2 Urine WBC 2 Ur Squamous Epith Cells 2 Urine Bacteria None Urine HCG, Qual Negative Stl C. diff Tox B Gene Negative 01/30/25 09:15 WBC RBC Hgb Hct MCV MCH MCHC RDW Std Deviation Plt Count Neut % (Auto) Lymph % (Auto) [place] % (Auto) Eos % (Auto) Baso % (Auto) Neut # (Auto) Lymph # (Auto) [place] # (Auto) Eos # (Auto) Baso # (Auto) Immature Gran # (Auto) Absolute Nucleated RBC Immature Gran % Nucleated RBC % Sodium Potassium Chloride Carbon Dioxide Anion Gap BUN Creatinine Estim Creat Clear Calc eGFR BUN/Creatinine Ratio Glucose Calculated Osmolality Calcium Corrected Calcium Iron 14 L TIBC 367 Iron Saturation 3 L Unsat Iron Binding 353 H Total Bilirubin AST ALT Alkaline Phosphatase Troponin I Total Protein Albumin Globulin Albumin/Globulin Ratio Lipase TSH Ur Collection Type Urine Color Urine Clarity Urine pH Ur Specific [place] Urine Protein Urine Glucose (UA) Urine Ketones Urine Blood Urine Nitrite Urine Bilirubin Urine Urobilinogen (Auto) Ur Leukocyte Esterase Urine RBC Urine WBC Ur Squamous Epith Cells Urine Bacteria Urine HCG, Qual Stl C. diff Tox B Gene Quality Measures Quality Measures none Assessment & Plan Assessment Current Active Medications: Generic Name Dose Route Start Last Admin Trade Name Freq PRN Reason Stop Dose Admin Sodium Chloride 1,000 mls @ 100 mls/hr 01/30/25 06:00 01/30/25 11:56 Ns IV 03/01/25 05:59 100 mls/hr .Q10H NENITA Administration Iron Sucrose 200 mg 01/30/25 09:15 01/30/25 11:57 Iron Sucrose Cplx Inj 20 Mg/Ml Vial 5 Ml IVP 10/02/25 09:14 200 mg DAILY NENITA Administration Ondansetron HCl 4 mg 01/30/25 05:49 Ondansetron Inj 2 Mg/Ml Inj 2 Ml IVP 03/01/25 05:48 Q6H PRN NAUSEA OR VOMITING Protocol Plan Patient is 24 years old no significant past medical history presented to [facility] on 01/30/[facility]25 with chief complaint of 3 weeks of bloody diarrhea. Admitted for evaluation and management of possible pancolitis. #Acute on chronic diarrhea #Concern for inflammatory bowel disease #Pancolitis DDx: Ulcerated colitis vs infectious colitis vs C. difficile versus proctitis The patient presents with a 1-month history of diarrhea, which has progressed to bloody diarrhea over the past 3 weeks. More likely inflammatory vs infectious etiology as sx are subacute and without fever/leukocytosis/signsand sx of infxn. Additionally, the patient denies uveitis, arthropathy, or skin lesions, though these are not required for the diagnosis of inflammatory bowel disease. Given the chronic bloody diarrhea, family history of UC, and lack of systemic infectious features, the presentation is highly suggestive of UC. The presence of rectal wall thickening on CT may also indicate proctitis, which is a common and localized form of UC. However, the recent use of multiple antibiotics (including vancomycin and metronidazole), raises concern for C.diff colitis as a possible superimposed or alternative diagnosis. Stool testing for C. difficile toxin is pending. CT abdominal/pelvis shows: Significant wall thickening and inflammatory change involving the colon, diffuse significant colitis pattern including thickening of the rectal wall, proctitis pattern, - Cont NS at 100mls/hr - GI Dr. Stover consulted appreciated. alin Pending recommendations. - Pending Calprotectin stool - Pending Stool culture - Pending Ova and parasite - Pending Giardia antigen EIA - Zofran 4 mg as needed for nausea/vomit #Normocytic anemia Low H&H is like secondary to GI loss. Patient does report a history anemia. Globin 9.9 and hematocrit 30.3, MCV 85 - Continue to monitor H&H - Started Iron sucrose 200mg IVP daily both to replete and stimulate appetite as pt has weight lsos and low BMI (18.4). Disposition: Med/tele for management and evaluation pancolitis CODE STATUS: Full code Patient seen and assessed under supervision of attending physician Dr. Renard GARDNER Attending Provider Attestation/Addendum I attest that I was physically present for the evaluation, physical examination, lab and imaging review of the patient with the residents. I discussed the case with the residents and agree with the findings and plans of care as documented above. Randy Glynn MD
[2025-01-30 16:41] LABS: Campylobacter PCR Negative (Negative); Salmonella Species PCR Negative (Negative); Shiga Toxin PCR Negative (Negative); Shigella Species PCR Negative (Negative)
--- NOTE | 2025-01-30 16:48 | PC.SS ---
Rounding note: Colonscopy pending for today 01/30.
[2025-01-30] MEDS: ONDANSETRON INJ 2 MG/ML INJ 2 ML 4 MG IVP (16:49)
--- NOTE | 2025-01-30 17:52 | PD.IMCONS ---
HPI Data of Consult Requesting Physician: Mariel Garcia MD Primary Care Provider: Dillon Bernabe MD Consult Narrative Reason for consult: Abnormal CTAP, bloody diarrhea, nausea vomiting History of present illness: 24 years old female presented to the hospital with nausea vomiting and bloody diarrhea Hemoglobin hematocrit 9.9 and 30.3 with an iron level at 14 which is low and iron saturation 23% CT scan of the abdomen pelvis without contrast showed diffuse colitis Patient had gone to another emergency room physician and was diagnosed with colitis about a month ago without initiation of any therapy cc:: cc: Mariel Garcia MD Review of Systems Review of Systems Systems Reviewed: All systems reviewed, normal except as documented Meds Home Medications and Allergies Home Medications ?Medication ?Instructions ?Recorded ?Confirmed ?Type cefdinir 300 mg capsule 300 mg PO BID 01/30/25 01/30/25 History metronidazole 500 mg tablet 500 mg PO TID 01/30/25 01/30/25 History vancomycin 125 mg capsule 125 mg PO Q6H 01/30/25 01/30/25 History Allergies Allergy/AdvReac Type Severity Reaction Status Date / Time No Known Allergies Allergy Verified 01/30/25 01:17 Exam Vital Signs Temp Pulse Resp BP Pulse Ox O2 Del Method 98.3 F 117 H 15 111/62 98 Room Air 01/30/25 16:00 01/30/25 16:00 01/30/25 16:00 01/30/25 16:00 01/30/25 16:00 01/30/25 16:00 Constitutional Comments: Chronically ill-appearing Routine Respiratory Exam Comments: Normal to auscultation Routine Abdominal Exam Comments: Soft nontender Results Labs 01/30/25 02:37 01/30/25 02:37 Labs: Short CBC 01/30/25 Range/Units 02:37 WBC 9.7 (3.6-11.0) Thou/mm3 Hgb 9.9 L (12.0-16.0) g/dL Hct 30.3 L (36.0-46.0) % Plt Count 412 (140-440) Thou/mm3 BMP 01/30/25 02:37 Sodium 135 L Potassium 4.4 Chloride 103 Carbon Dioxide 23.5 BUN < 5 L Creatinine 0.7 Glucose 100 Calcium 9.2 Cardiac Enzymes 01/30/25 Range/Units 02:37 Troponin I < 0.002 (0.0-0.045) ng/mL Liver Function 01/30/25 Range/Units 02:37 Total Bilirubin 0.3 (0.3-1.2) mg/dL AST 19 (0-34) U/L ALT 19 (10-49) U/L Alkaline Phosphatase 51 (46-116) U/L Albumin 4.1 (3.5-5.0) gm/dL Urine 01/30/25 Range/Units 03:05 Urine Color Lt-Yellow (Lt Yel-Yel) Urine Clarity Clear (Clear/Hazy) Urine pH 6.5 (5.0-7.0) Ur Specific [place] 1.011 (1.001-1.035) Urine Protein Negative (Neg - Trace) Urine Glucose (UA) Negative (Negative) Assessment and Plan Additional Assessment & Plan Additional Plan: # Pancolitis infectious versus inflammatory Plan complete stool panel With WBC count culture and sensitivity ova and parasite Giardia antigen Fecal calprotectin ANCA antibody CRP Stool for C. difficile If above negative we will consider doing a fiberoptic colonoscopy with biopsy for proper diagnosis Will hold off use of steroids till the C. difficile toxin is found to be negative as well as culture and sensitivity is negative Thank you very much for the opportunity to participate in the care of this patient
[2025-01-30 18:41] LABS: Sed Rate (ESR) 11 mm/hr (0-20)
[2025-01-30 20:34] LABS: C-Reactive Protein 11.4 mg/dL (0.0-0.9)
[2025-01-30 23:49] LABS: Stool for WBCs Moderate (Negative)
[2025-01-31] VITALS: BP 113/62; PULSE 108; RESP 17; TEMP 36; O2SAT 99
[2025-01-31 04:00] VITALS: BP 109/64; PULSE 97; RESP 16; TEMP 36.1; O2SAT 99
[2025-01-31 05:50] LABS: Basophils # (Auto) 0.0 Thou/mm3 (0.0-0.2); Basophils % (Auto) 1 % (0-2.5); Eosinophils # (Auto) 0.5 Thou/mm3 (0.0-0.5); Eosinophils % (Auto) 11 % (0-10); Hematocrit 25.3 % (36.0-46.0); Immature Granulocytes Auto 0.02 Thou/mm3 (0.00-0.00); Lymphocytes # (Auto) 1.2 Thou/mm3 (1.0-4.8); Lymphocytes % (Auto) 27 % (10-50); Mean Corpuscular HGB Conc 32.0 g/dl (31.0-37.0); Mean Corpuscular Hemoglobin 27.6 pg (25.0-35.0); Mean Corpuscular Volume 86 fL (80-100); Monocytes # (Auto) 0.5 Thou/mm3 (0.0-0.8); Monocytes % (Auto) 12 % (0-12); Neutrophils # (Auto) 2.2 Thou/mm3 (1.8-7.7); Neutrophils % (Auto) 49 % (37-80); Nucleated Red Blood Cell # 0.00 Thou/mm3 (0.00-0.00); Nucleated Red Blood Cell % 0 /100 WBC (0); Platelet Count 324 Thou/mm3 (140-440); RDW Standard Deviation 39.8 fL (36.4-46.3); Red Blood Count 2.93 Miln/mm3 (4.00-5.20); White Blood Count 4.5 Thou/mm3 (3.6-11.0)
[2025-01-31 05:59] LABS: Hemoglobin 8.1 g/dL (12.0-16.0)
[2025-01-31 06:17] LABS: Alanine Aminotransferase 10 U/L (10-49); Albumin, Serum 2.9 gm/dL (3.5-5.0); Albumin/Globulin Ratio 1.5 (1.2-2.2); Alkaline Phosphatase 42 U/L (46-116); Anion Gap 9 (7-16); Aspartate Amino Transferase < 10 U/L (0-34); BUN/Creatinine Ratio 8 Ratio (12-20); Bilirubin,Total 0.2 mg/dL (0.3-1.2); Blood Urea Nitrogen < 5 mg/dL (9-23); Calcium 8.2 mg/dL (8.3-10.6); Calcium (Corrected) 9.1 mg/dL (8.5-10.1); Carbon Dioxide 25.2 mMol/L (20.0-31.0); Chloride 108 mMol/L (98-107); Creatinine (Component) 0.6 mg/dL (0.6-1.3); Estimated Creatinine Clearance 114.3 mL/min (>60); Globulin 1.9 gm/dL (2.3-3.5); Glucose 77 mg/dL (74-106); Magnesium 1.9 mg/dL (1.6-2.6); Osmolality,Calculated 279 (275-295); Phosphorous 3.2 mg/dL (2.4-5.1); Potassium 3.9 mMol/L (3.4-5.1); Sodium 142 mMol/L (136-145); Total Protein 4.8 gm/dL (5.7-8.2); eGFR > 60 See Note
[2025-01-31 08:00] VITALS: BP 116/63; PULSE 86; RESP 18; TEMP 36.2; O2SAT 97
[2025-01-31] MEDS: SODIUM CHLORIDE 0.9% 1000 ML 1,000 ML 100 ML IV ×2 (08:31→17:53)
[2025-01-31] MEDS: IRON SUCROSE CPLX INJ 20 MG/ML VIAL 5 ML 200 MG IVP (08:32)
[2025-01-31 09:59] LABS: Clostridium Difficile PCR Negative (Negative)
[2025-01-31 11:53] VITALS: BP 131/74; PULSE 81; RESP 18; TEMP 36.4; O2SAT 98
--- NOTE | 2025-01-31 13:37 | ESPR_ITS ---
<Statement entered by Javier Samson MD - 01/31/25 17:13> Seen and examined at bedside. No acute overnight events and patient resting comfortably in bed. States that she continues to have multiple, bloody BMs per day that have not significantly changed since admission. Touched base with GI and recommended to start on solumedrol 40 mg IV and started on golytely in preparation for colonoscopy. At this time stool shows moderate WBC but all other work-up including Campylobacter, C. difficile x 2, ST EC, Salmonella, Shigella were all negative. At this time only pending stool calprotectin, Giardia and stool ova and parasites but will likely take some time. ----- Note reviewed and agree with care plan as documented. Please refer to the note below for further details. Plan discussed with attending physician Dr. Renard Samson MD PGY-2 Internal Medicine Documentation for date of: 01/31/25 Subjective Subjective Interval history: No overnight events. This morning pt endorses improving 5/10 b/l lower quadrant abdominal pain that worsens with palpation, and has had 4 watery BMs with blood this morning. Otherwise denies intermittent lightheadedness, n/v/d, chest pain, palpitations, constipation, fever, chills, arthropathy, visual changes. ROS negative except as noted above. Exam Vital Signs Temp Pulse Resp BP Pulse Ox O2 Del Method 97.6 F 81 18 131/74 H 98 Room Air 01/31/25 11:53 01/31/25 11:53 01/31/25 11:53 01/31/25 11:53 01/31/25 11:53 01/31/25 08:00 Narrative Exam General: AOx3, no acute distress, able to speak full sentences HEENT: NC/AT, mucous membranes moist, bilateral sclera anicteric Cardiovascular: regular rate and rhythm, S1/S2 present, no murmurs appreciated Pulmonary: clear to auscultation bilaterally, no rales/rhonchi/wheezes Abdominal: soft, b/l lower quadrant TTP, non-distended, no rebound/guarding, normal bowel sounds present Musculoskeletal: normal ROM Skin: warm and dry, intact, no rashes Neuro: CN II-XII intact, no focal deficits Objective Labs 01/31/25 05:20 01/31/25 05:20 Labs: Laboratory Results - last 24 hr 01/30/25 01/30/25 01/30/25 06:06 18:15 21:00 WBC RBC Hgb Hct MCV MCH MCHC RDW Std Deviation Plt Count Neut % (Auto) Lymph % (Auto) [place] % (Auto) Eos % (Auto) Baso % (Auto) Neut # (Auto) Lymph # (Auto) [place] # (Auto) Eos # (Auto) Baso # (Auto) Immature Gran # (Auto) Absolute Nucleated RBC Immature Gran % Nucleated RBC % ESR 11 Sodium Potassium Chloride Carbon Dioxide Anion Gap BUN Creatinine Estim Creat Clear Calc eGFR BUN/Creatinine Ratio Glucose Calculated Osmolality Calcium Corrected Calcium Phosphorus Magnesium Total Bilirubin AST ALT Alkaline Phosphatase C-Reactive Prot, Quant 11.4 H Total Protein Albumin Globulin Albumin/Globulin Ratio Stool for White Cells Moderate A Stool Campylobacter PCR Negative Cancelled Stl C. diff Tox B Gene Negative Stl E.coli Shiga Tox PCR Negative Cancelled Stl Giardia Antigen Cancelled Stool Salmonella PCR Negative Cancelled Stool Shigella PCR Negative Cancelled 01/31/25 05:20 WBC 4.5 D RBC 2.93 L Hgb 8.1 L Hct 25.3 L MCV 86 MCH 27.6 MCHC 32.0 RDW Std Deviation 39.8 Plt Count 324 D Neut % (Auto) 49 Lymph % (Auto) 27 [place] % (Auto) 12 Eos % (Auto) 11 H Baso % (Auto) 1 Neut # (Auto) 2.2 Lymph # (Auto) 1.2 [place] # (Auto) 0.5 Eos # (Auto) 0.5 Baso # (Auto) 0.0 Immature Gran # (Auto) 0.02 H Absolute Nucleated RBC 0.00 Immature Gran % 0 Nucleated RBC % 0 ESR Sodium 142 Potassium 3.9 D Chloride 108 H Carbon Dioxide 25.2 Anion Gap 9 BUN < 5 L Creatinine 0.6 Estim Creat Clear Calc 114.3 eGFR > 60 BUN/Creatinine Ratio 8 L Glucose 77 Calculated Osmolality 279 Calcium 8.2 L Corrected Calcium 9.1 Phosphorus 3.2 Magnesium 1.9 Total Bilirubin 0.2 L AST < 10 ALT 10 Alkaline Phosphatase 42 L C-Reactive Prot, Quant Total Protein 4.8 L Albumin 2.9 L D Globulin 1.9 L Albumin/Globulin Ratio 1.5 Stool for White Cells Stool Campylobacter PCR Stl C. diff Tox B Gene Stl E.coli Shiga Tox PCR Stl Giardia Antigen Stool Salmonella PCR Stool Shigella PCR Quality Measures Quality Measures none Assessment & Plan Assessment Current Active Medications: Generic Name Dose Route Start Last Admin Trade Name Freq PRN Reason Stop Dose Admin Sodium Chloride 1,000 mls @ 100 mls/hr 01/30/25 06:00 01/31/25 08:31 Ns IV 03/01/25 05:59 100 mls/hr .Q10H NENITA Administration Ondansetron HCl 4 mg 01/30/25 05:49 01/30/25 16:49 Ondansetron Inj 2 Mg/Ml Inj 2 Ml IVP 03/01/25 05:48 4 mg Q6H PRN Administration NAUSEA OR VOMITING Protocol Plan Patient is 24 years old no significant past medical history presented to [facility] on 01/30/2025 with chief complaint of 3 weeks of bloody diarrhea. Admitted for evaluation and management of possible pancolitis. #Acute on chronic diarrhea #Concern for inflammatory bowel disease #Pancolitis DDx: Ulcerated colitis vs infectious colitis vs C. difficile versus proctitis The patient presents with a 1-month history of diarrhea, which has progressed to bloody diarrhea over the past 3 weeks. More likely inflammatory vs infectious etiology as sx are subacute and without fever/leukocytosis/signsand sx of infxn. Additionally supported by CT ab/pelv findings of pancolitis as well as bloody diarrhea that continues this morning and family history of UC. Furthermore C- Diff panel returned negative. - Cont NS at 100mls/hr - GI Dr. Stover consulted, appreciated. Per recommendations initiated Solu-Medrol 40mg q12 and started Golytley with anticipated diagnostic colonoscopy tomorrow. - Pending Calprotectin stool - Pending Stool culture - Pending Ova and parasite - Pending Giardia antigen EIA - Zofran as needed for nausea/vomit #Normocytic anemia Low H&H is like secondary to GI loss. Patient does report a history anemia. Globin 9.9 and hematocrit 30.3, MCV 85 - Continue to monitor H&H - Stopped Iron sucrose 200mg IVP daily this morning pending C. difficile studies. Likely Hgb decreasing during inpt stay more related to fluid administration plus GI loss. Will re-eval need for iron after colonoscopy tomorrow. Hospital management: Disposition: Pt is on golytely + methylprednisolone, plan is to perform colonoscopy tomorrow to characterize bowel inflammation. Fluids: NaCl Diet: Clear liquid Lines: Peripheral IV DVT prophylaxis: SCDs CODE STATUS: full code ----- Plan discussed with attending physician Dr. Renard Covarrubias, Medical Student SI Attending Provider Attestation/Addendum I attest that I was physically present for the evaluation, physical examination, lab and imaging review of the patient with the residents. I discussed the case with the residents and agree with the findings and plans of care as documented above. Patient seen and examined at bedside this morning. Appears comfortable, states that she still has multiple loose watery bowel movement with blood. Continues to have mild abdominal pain mostly around lower abdomen. Denies any nausea or vomiting. Also denies any fever. C. difficile studies came back negative, rest of the stool studies are pending. Discussed with gastroenterology, started patient on Solu-Medrol 40 mg every 12 hour, patient is planned for colonoscopy tomorrow, started on GoLytely preparation, appreciate recommendations. We will continue with IV hydration, Zofran for nausea and vomiting. Noted to have low iron levels, we will start iron therapy before discharge. Randy Glynn MD
--- NOTE | 2025-01-31 13:53 | ESPR_ITS ---
Documentation for date of: 01/31/25 Subjective Subjective Interval history: Significant drop in hemoglobin hematocrit from 9.9 and 30.0-8.1 and 25.7 C. difficile enterotoxin is negative Case discussed with the internal medicine team Started the patient on IV Solu-Medrol 40 mg IV push Q12 Clear liquid diet GoLytely prep Colonoscopy tomorrow Exam Vital Signs Temp Pulse Resp BP Pulse Ox O2 Del Method 97.6 F 81 18 131/74 H 98 Room Air 01/31/25 11:53 01/31/25 11:53 01/31/25 11:53 01/31/25 11:53 01/31/25 11:53 01/31/25 08:00 Objective Labs 01/31/25 05:20 01/31/25 05:20 Labs: Laboratory Results - last 24 hr 01/30/25 01/30/25 01/30/25 06:06 18:15 21:00 WBC RBC Hgb Hct MCV MCH MCHC RDW Std Deviation Plt Count Neut % (Auto) Lymph % (Auto) [place] % (Auto) Eos % (Auto) Baso % (Auto) Neut # (Auto) Lymph # (Auto) [place] # (Auto) Eos # (Auto) Baso # (Auto) Immature Gran # (Auto) Absolute Nucleated RBC Immature Gran % Nucleated RBC % ESR 11 Sodium Potassium Chloride Carbon Dioxide Anion Gap BUN Creatinine Estim Creat Clear Calc eGFR BUN/Creatinine Ratio Glucose Calculated Osmolality Calcium Corrected Calcium Phosphorus Magnesium Total Bilirubin AST ALT Alkaline Phosphatase C-Reactive Prot, Quant 11.4 H Total Protein Albumin Globulin Albumin/Globulin Ratio Stool for White Cells Moderate A Stool Campylobacter PCR Negative Cancelled Stl C. diff Tox B Gene Negative Stl E.coli Shiga Tox PCR Negative Cancelled Stl Giardia Antigen Cancelled Stool Salmonella PCR Negative Cancelled Stool Shigella PCR Negative Cancelled 01/31/25 05:20 WBC 4.5 D RBC 2.93 L Hgb 8.1 L Hct 25.3 L MCV 86 MCH 27.6 MCHC 32.0 RDW Std Deviation 39.8 Plt Count 324 D Neut % (Auto) 49 Lymph % (Auto) 27 [place] % (Auto) 12 Eos % (Auto) 11 H Baso % (Auto) 1 Neut # (Auto) 2.2 Lymph # (Auto) 1.2 [place] # (Auto) 0.5 Eos # (Auto) 0.5 Baso # (Auto) 0.0 Immature Gran # (Auto) 0.02 H Absolute Nucleated RBC 0.00 Immature Gran % 0 Nucleated RBC % 0 ESR Sodium 142 Potassium 3.9 D Chloride 108 H Carbon Dioxide 25.2 Anion Gap 9 BUN < 5 L Creatinine 0.6 Estim Creat Clear Calc 114.3 eGFR > 60 BUN/Creatinine Ratio 8 L Glucose 77 Calculated Osmolality 279 Calcium 8.2 L Corrected Calcium 9.1 Phosphorus 3.2 Magnesium 1.9 Total Bilirubin 0.2 L AST < 10 ALT 10 Alkaline Phosphatase 42 L C-Reactive Prot, Quant Total Protein 4.8 L Albumin 2.9 L D Globulin 1.9 L Albumin/Globulin Ratio 1.5 Stool for White Cells Stool Campylobacter PCR Stl C. diff Tox B Gene Stl E.coli Shiga Tox PCR Stl Giardia Antigen Stool Salmonella PCR Stool Shigella PCR Impressions Impression: Dropping hemoglobin hematocrit Inflammatory versus infectious enterocolitis GoLytely prep IV Solu-Medrol Consent obtained for colonoscopy with possible biopsy possible therapeutic intervention under intravenous moderate sedation Assessment & Plan A&P Narrative # Pancolitis infectious versus inflammatory Plan complete stool panel With WBC count culture and sensitivity ova and parasite Giardia antigen Fecal calprotectin ANCA antibody CRP Stool for C. difficile If above negative we will consider doing a fiberoptic colonoscopy with biopsy for proper diagnosis Will hold off use of steroids till the C. difficile toxin is found to be negative as well as culture and sensitivity is negative Thank you very much for the opportunity to participate in the care of this patient Time Spent With Patient Time: Total time spent is greater than 50% in coordination of care (as documented) at patient's floor/unit and/or counseling patient:
--- NOTE | 2025-01-31 14:48 | PC.SS ---
Patient is alert/oriented. Patient states she resides with her parents. Patient is independent with ADL's. She is off precautions. Cdif results were negative. Patient is employed. Patient plans on discharging back home with family. No d/c needs. PCP: MARLENE and last appt. was last week. Patient's pharmacy is with [facility]. Alt medical decision maker: Mother, Joana Piper,
[2025-01-31 16:00] VITALS: BP 109/65; PULSE 81; RESP 18; TEMP 36.7; O2SAT 98
[2025-01-31] MEDS: NA SU/NAHCO3/KC/PEG (Golytely) 4,000 ML BTL 4000 ML PO (17:53)
[2025-01-31 20:00] VITALS: BP 115/68; PULSE 84; RESP 16; TEMP 36.6; O2SAT 98
[2025-02-01] VITALS (18 sets, daily range): BP systolic 102–124; BP diastolic 55–76; PULSE 69–98; RESP 12–20; TEMP 36.1–36.6; O2SAT 98–100; BMI 18.3
[2025-02-01] MEDS: SODIUM CHLORIDE 0.9% 1000 ML 1,000 ML 100 ML IV (03:03)
[2025-02-01 05:30] LABS: Basophils # (Auto) 0.0 Thou/mm3 (0.0-0.2); Basophils % (Auto) 0 % (0-2.5); Eosinophils # (Auto) 0.0 Thou/mm3 (0.0-0.5); Eosinophils % (Auto) 0 % (0-10); Hematocrit 26.3 % (36.0-46.0); Immature Granulocytes Auto 0.03 Thou/mm3 (0.00-0.00); Lymphocytes # (Auto) 0.8 Thou/mm3 (1.0-4.8); Lymphocytes % (Auto) 15 % (10-50); Mean Corpuscular HGB Conc 31.6 g/dl (31.0-37.0); Mean Corpuscular Hemoglobin 27.0 pg (25.0-35.0); Mean Corpuscular Volume 86 fL (80-100); Monocytes # (Auto) 0.1 Thou/mm3 (0.0-0.8); Monocytes % (Auto) 1 % (0-12); Neutrophils # (Auto) 4.0 Thou/mm3 (1.8-7.7); Neutrophils % (Auto) 83 % (37-80); Nucleated Red Blood Cell # 0.00 Thou/mm3 (0.00-0.00); Nucleated Red Blood Cell % 0 /100 WBC (0); Platelet Count 357 Thou/mm3 (140-440); RDW Standard Deviation 39.2 fL (36.4-46.3); Red Blood Count 3.07 Miln/mm3 (4.00-5.20); White Blood Count 4.9 Thou/mm3 (3.6-11.0)
[2025-02-01 06:28] LABS: Alanine Aminotransferase 10 U/L (10-49); Albumin, Serum 3.1 gm/dL (3.5-5.0); Albumin/Globulin Ratio 1.4 (1.2-2.2); Alkaline Phosphatase 41 U/L (46-116); Anion Gap 8 (7-16); Aspartate Amino Transferase 11 U/L (0-34); BUN/Creatinine Ratio 10 Ratio (12-20); Bilirubin,Total 0.2 mg/dL (0.3-1.2); Blood Urea Nitrogen < 5 mg/dL (9-23); Calcium 8.5 mg/dL (8.3-10.6); Calcium (Corrected) 9.2 mg/dL (8.5-10.1); Carbon Dioxide 23.8 mMol/L (20.0-31.0); Chloride 108 mMol/L (98-107); Creatinine (Component) 0.5 mg/dL (0.6-1.3); Estimated Creatinine Clearance 137.2 mL/min (>60); Globulin 2.2 gm/dL (2.3-3.5); Glucose 117 mg/dL (74-106); Magnesium 1.9 mg/dL (1.6-2.6); Osmolality,Calculated 277 (275-295); Phosphorous 3.9 mg/dL (2.4-5.1); Potassium 4.2 mMol/L (3.4-5.1); Sodium 140 mMol/L (136-145); Total Protein 5.3 gm/dL (5.7-8.2); eGFR > 60 See Note
[2025-02-01 08:57] LABS: Hemoglobin 8.3 g/dL (12.0-16.0)
--- NOTE | 2025-02-01 09:14 | ESPR_ITS ---
<Statement entered by Javier Samson MD - 02/01/25 15:21> No acute overnight events. Seen and examined at bedside and patient states that her abdominal pain and blood in her bowel movements have significantly improved after starting Solu-Medrol. Prepping for colonoscopy with GoLytely. Otherwise, stool studies thus far show moderate WBCs and pending calprotectin, Giardia, and ova and parasites with everything else being negative at this time including Salmonella, Shigella, STEC, C. difficile, and Campylobacter. Vital signs stable, hemoglobin on admission was 9.9 but dropped to 8.1 but now stable at 8.3. Otherwise, CHEM panel unremarkable. ----- Note reviewed and agree with care plan as documented. Please refer to the note below for further details. Plan discussed with attending physician Dr. Ashish Samson MD PGY-2 Internal Medicine Documentation for date of: 02/01/25 Subjective Subjective Interval history: Seen and examined at bedside. No acute overnight events and patient resting comfortably in bed. States that abdominal pain has significantly improved since beginning Golytely and has not noticed blood in stool, though does continue to have watery diarrhea as expected given possible IBD as well as being on Golytely. Currently stool workup negative for infectious source, showed elevated WBCs. Stool calprotectin, Giardia, ova/parasites pending. Plan to complete colonoscopy today. Additionally reports fatigue, otherwise denies lightheadedness, n/v/d, chest pain, palpitations, constipation, fever, chills, arthropathy, visual changes. ROS negative except as noted above. Exam Vital Signs Temp Pulse Resp BP Pulse Ox O2 Del Method 97.5 F 69 16 116/68 98 Room Air 02/01/25 07:47 02/01/25 07:47 02/01/25 07:47 02/01/25 07:47 02/01/25 07:47 02/01/25 07:47 Narrative Exam General: AOx3, no acute distress, able to speak full sentences HEENT: NC/AT, mucous membranes moist, bilateral sclera anicteric Cardiovascular: regular rate and rhythm, S1/S2 present, no murmurs appreciated Pulmonary: clear to auscultation bilaterally, no rales/rhonchi/wheezes Abdominal: soft, b/l lower quadrant TTP, non-distended, no rebound/guarding, normal bowel sounds present Musculoskeletal: normal ROM Skin: warm and dry, intact, no rashes Neuro: CN II-XII intact, no focal deficits Objective Labs 02/01/25 05:03 02/01/25 05:03 Labs: Laboratory Results - last 24 hr 01/30/25 02/01/25 21:00 05:03 WBC 4.9 RBC 3.07 L Hgb 8.3 L Hct 26.3 L MCV 86 MCH 27.0 MCHC 31.6 RDW Std Deviation 39.2 Plt Count 357 D Neut % (Auto) 83 H Lymph % (Auto) 15 Taney % (Auto) 1 Eos % (Auto) 0 Baso % (Auto) 0 Neut # (Auto) 4.0 Lymph # (Auto) 0.8 L Taney # (Auto) 0.1 Eos # (Auto) 0.0 Baso # (Auto) 0.0 Immature Gran # (Auto) 0.03 H Absolute Nucleated RBC 0.00 Immature Gran % 1 H Nucleated RBC % 0 Sodium 140 Potassium 4.2 Chloride 108 H Carbon Dioxide 23.8 Anion Gap 8 BUN < 5 L Creatinine 0.5 L Estim Creat Clear Calc 137.2 eGFR > 60 BUN/Creatinine Ratio 10 L Glucose 117 H D Calculated Osmolality 277 Calcium 8.5 Corrected Calcium 9.2 Phosphorus 3.9 Magnesium 1.9 Total Bilirubin 0.2 L AST 11 ALT 10 Alkaline Phosphatase 41 L Total Protein 5.3 L Albumin 3.1 L Globulin 2.2 L Albumin/Globulin Ratio 1.4 Stool Campylobacter PCR Cancelled Stl C. diff Tox B Gene Negative Stl E.coli Shiga Tox PCR Cancelled Stool Salmonella PCR Cancelled Stool Shigella PCR Cancelled Quality Measures Quality Measures none Assessment & Plan Assessment Current Active Medications: Generic Name Dose Route Start Last Admin Trade Name Freq PRN Reason Stop Dose Admin Methylprednisolone Sodium Succinate 40 mg 01/31/25 21:00 02/01/25 08:54 Methylprednisolone Sod Succ 40 Mg/Ml Vial IV 02/07/25 20:59 40 mg Q12HR NENITA Administration Ondansetron HCl 4 mg 01/30/25 05:49 01/30/25 16:49 Ondansetron Inj 2 Mg/Ml Inj 2 Ml IVP 03/01/25 05:48 4 mg Q6H PRN Administration NAUSEA OR VOMITING Protocol Plan Patient is 24 years old no significant past medical history presented to [facility] on 01/30/2025 with chief complaint of 3 weeks of bloody diarrhea. Admitted for evaluation and management of possible pancolitis. #Acute on chronic diarrhea #Concern for inflammatory bowel disease #Pancolitis DDx: Ulcerated colitis vs infectious colitis vs C. difficile versus proctitis The patient presents with a 1-month history of diarrhea, which has progressed to bloody diarrhea over the past 3 weeks. More likely inflammatory vs infectious etiology as sx are subacute and without fever/leukocytosis/signsand sx of infxn. Additionally supported by CT ab/pelv findings of pancolitis as well as bloody diarrhea that continues this morning and family history of UC. Furthermore C- Diff panel returned negative. - Cont NS at 100mls/hr - GI Dr. Stover consulted, appreciated. Per recommendations continue Solumedrol and anticipate colonoscopy today. - Pending Calprotectin stool - Pending Stool culture - Pending Ova and parasite - Pending Giardia antigen EIA - Zofran as needed for nausea/vomit #Normocytic anemia Low H&H is like secondary to GI loss. Patient does report a history of anemia. Likely Hgb decreasing during inpt stay more related to fluid administration plus GI loss. Will re-eval need for iron after colonoscopy tomorrow. - Continue to monitor H&H Hospital management: Disposition: Colonoscopy today. Fluids: NaCl Diet: Clear liquid Lines: Peripheral IV DVT prophylaxis: SCDs CODE STATUS: full code ----- Plan discussed with attending physician Dr. Ashish Covarrubias, Medical Student [employer] Attending Provider Attestation/Addendum I have examined the patient, reviewed labs and imaging findings, discussed the case with the resident(s), and reviewed entered orders. I agree with the plan of care as outlined in this note, with these additional summaries/recommendations: Patient seen at bedside. No acute overnight events. She reports some improvement in abdominal pain and bloody bowel movements. She has completed GoLytely and will go for colonoscopy today with gastroenterology. We will continue IV Solu-Medrol for likely new onset inflammatory bowel disease. We will resume diet when able. Please see residents note for additional details and management. Dr. Ashish MD
--- NOTE | 2025-02-01 16:26 | PC.NURSE ---
CALLED DR. BAI AND NOTIFIED HIM IF EVERYTHING COMES OUT NORMAL AFTER PATIENTS COLONOSCOPY. IF HE IS WILLING TO DISCHARGE PATIENT. 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 PATIENT WILL DISCHARGE HOME AFTER COLONOSCOPY.
[2025-02-01] MEDS: SODIUM CHLORIDE 0.9% 500 ML 500 ML 20 ML IV (19:00)
--- NOTE | 2025-02-01 19:35 | SUR.PHASEI ---
Arrived to [facility] [place] [facility]. Report received from Irlanda HAILE. Resting with eyes open. Responding to questions and commands appropriately. No c/o pain or discomfort. Passing flatus. No s/o distress.
--- NOTE | 2025-02-01 20:06 | SUR.PHASEI ---
Transferred to room 374 via gurney. Eyes open, no c/o pain or discomfort. No s/o distress. Ambulated to bed and made comfortable. Call light within reach. Significant other at bedside.
--- NOTE | 2025-02-01 20:42 | PD.RESDS ---
Planned Discharge Date 02/01/25 DS: Providers Provider Date of admission: 01/30/25 05:49 Primary care physician: Dillon Bernabe MD Admitting Provider: Mariel Garcia MD Attending Provider on Admission: Ayo Hinojosa MD Consults: 01/30/25 06:00 Consult to Gastroenterology Stat Comment: Consulting Provider: Miriam Stover Attending Provider on DC: Javier Samson MD Discharging Provider: Javier Samson MD DS: Diagnosis Problem List Completed Was Problem List Reviewed/Reconciled?: Yes Hospital Course Hospital Course Hospital course: Lory Dyer is a 24-year-old femal with no significant history who presented with chief complaint of diarrhea. Endorses 1 month history of left lower quadrant abdominal pain with associated watery and bloody diarrhea since she has approximately 10-15 bowel movements per day. Also has an associated 10 pound weight loss over the last few months that she attributes to her ongoing diarrhea. She was seen at [facility] and no medical intervention was done at that time and was also seen by her PCP and was given oral vancomycin followed by cefdinir and metronidazole without improvement in symptoms. She was then admitted and GI was consulted. Stool studies showed moderate WBCs but otherwise negative for Campylobacter, C. difficile, STEC, Salmonella, and Shigella with pending Giardia and stool ova and parasites. Immunology labs also pending. She underwent colonoscopy on 02/01 that showed continuous area of bleeding, ulcerated mucosa with stigmata of recent bleeding in the rectum and entire colon from sigmoid colon to cecum and biopsies were taken and will have to follow-up at [facility] for results. 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 Medications were sent to her pharmacy and instructed to follow-up at the [facility]. Diagnoses during admission: #Acute on chronic diarrhea #Concern for inflammatory bowel disease #Pancolitis #Normocytic anemia Discharge instructions: You've been started on a regimen for your current symptoms: ? Prednisone 5 mg 3 tablets p.o. twice daily for thirty days and 1 refill ? Sulfasalazine 500 mg 2 tablets twice daily for thirty days and 6 refills ? Imuran/azathioprine 50 mg daily for 30 days and 6 refills ? Folic acid 1 mg daily for 30 days and 6 refills ? Follow-up with PCP within 1-2 weeks of discharge ? Follow-up with gastroenterology within 1-2 weeks of discharge ? If you do not have a PCP, you can follow-up at the [facility] (you can call [phone] to make an appointment) ? You can follow-up with Dr. Garcia, Dr. Jacinto, or Dr. Daryl Samson ? Return to ED if symptoms worsen or recur ----- Note reviewed and agree with care plan as documented. Please refer to the note below for further details. Plan discussed with attending physician Javier Samson MD PGY-2 Internal Medicine Time Spent with Patient Time attestation: Total time spent providing and/or coordinating discharge services: Time spent: Greater than 30 minutes Exam Vital Signs Temp Pulse Resp BP Pulse Ox O2 Del Method O2 Flow Rate 97.6 F 78 17 110/64 99 Room Air 3 02/01/25 20:02/01/25 20:02/01/25 20:02/01/25 20:02/01/25 20:02/01/25 16:02/01/25 19:35 Narrative Exam General: AOx3, no acute distress, able to speak full sentences HEENT: NC/AT, mucous membranes moist, bilateral sclera anicteric Cardiovascular: regular rate and rhythm, S1/S2 present, no murmurs appreciated Pulmonary: clear to auscultation bilaterally, no rales/rhonchi/wheezes Abdominal: soft, non-tender throughout, non-distended, no rebound/guarding, normal bowel sounds present Musculoskeletal: normal ROM Skin: warm and dry, intact, no rashes Neuro: CN II-XII intact, no focal deficits Discharge Plan Plan Patient Disposition: HOME (Self Care) Patient condition on transfer: Stable Care Plan Goals: You've been started on a regimen for your current symptoms: ? Prednisone 5 mg 3 tablets p.o. twice daily for thirty days and 1 refill ? Sulfasalazine 500 mg 2 tablets twice daily for thirty days and 6 refills ? Imuran/azathioprine 50 mg daily for 30 days and 6 refills ? Folic acid 1 mg daily for 30 days and 6 refills ? Follow-up with PCP within 1-2 weeks of discharge for biopsy results. ? Follow-up with gastroenterology within 1-2 weeks of discharge ? If you do not have a PCP, you can follow-up at the [facility] (you can call [phone] to make an appointment). ? You can follow-up with Dr. Garcia, Dr. Jacinto, or Dr. Daryl Samson ? Return to ED if symptoms worsen or recur Prescriptions/Referrals Prescriptions/Med Rec: New prednisone 5 mg tablet 15 mg PO BID 30 Days Qty: 180 1RF Taper: Prednisone Taper 20 mg DAILY for 2 Days and 0 Hour 10 mg DAILY for 2 Days and 0 Hour 5 mg DAILY for 7 Days and 0 Hour sulfasalazine 500 mg tablet 1,000 mg PO BID 30 Days Qty: 120 6RF Rx Instructions: give with food (meal/snack) azathioprine 50 mg tablet 50 mg PO QDAY 30 Days Qty: 30 6RF folic acid 1 mg tablet 1 mg PO QDAY 30 Days Qty: 30 6RF Discontinued vancomycin 125 mg capsule 125 mg PO Q6H metronidazole 500 mg tablet 500 mg PO TID cefdinir 300 mg capsule 300 mg PO BID Referrals: Dillon Bernabe MD [Primary Care Provider, Family Practice] Patient/Caregiver Discharge Instructions Discharge Activity: resume usual activities Education Materials: Colonoscopy, How the Colon Works Print Language: Icelandic Stand Alone Forms: Jessika Award Info., Patient Portal Info Letter Discharge Order Discharge Orders: Discharge (Routine); Ordered 02/01/25 Ordered By: Javier Samson Quality Discharge Quality Measures none (GI bleed) Attestestation MD Attestation I have examined the patient, reviewed labs and imaging findings, discussed the case with the resident(s), and reviewed entered orders. I agree with the plan of care as outlined in this note. Time Spent: [address] Ashish MD
[2025-02-03 06:29] LABS: Giardia Result NOT DETECTED
[2025-02-04 22:08] LABS: Source STOOL
[2025-02-07 07:15] LABS: Calprotectin, Stool* 288 mcg/g
[2025-02-07 07:27] LABS: ANCA Screen POSITIVE (NEGATIVE); Atypical P-ANCA Titer 1:160 titer (<1:20); Myeloperoxidase Ab <1.0 AI (<1.0); Proteinase-3 Ab <1.0 AI (<1.0)
[2025-02-09 06:20] LABS: ANA Pattern NUCLEAR, HOMOGENEOUS; ANA Pattern NUCLEAR, NUCLEOLAR; ANA Screen, IFA POSITIVE (NEGATIVE); ANA Titer 1:320 titer; ANA Titer 1:80 titer
== END 2025-02-01 22:31 | disposition home or self-care (01) | DRG 249 ==
LOC: SERX 01:55 → SERHOLD 06:29 → S3SX 01-31 06:06
PROVIDERS: Nurse Practitioner Family; Specialist; Admitting Provider Student in an Organized Health Care Education/Training Program; Emergency Provider Emergency Medicine; PCP Family Medicine; Visit Provider Student in an Organized Health Care Education/Training Program
PROC: 0DJD8ZZ Inspection of Lower Intestinal Tract, Via Natural or Artificial Opening Endoscopic (ICD-10-PCS; CPT 45378; principal; 2025-02-01 20:00)
DX: K52.9 Noninfective gastroenteritis and colitis, unspecified (principal); K62.89 Other specified diseases of anus and rectum; D64.89 Other specified anemias; Z87.440 Personal history of urinary (tract) infections
CPT/HCPCS: 36415; 74176; 80053; 81001; 81025; 83540; 83550; 83690; 83735; 83993; 84100; 84443; 84484; 85025; 85652; 86021; 86036; 86037; 86038; 86039; 86140; 87015; 87045; 87046; 87177; 87205; 87209; 87329; 87493; 87899; 93005; 96374; 96375; 99284; A4217; A4649; J0780; J1200; J1756; J1956; J2175; J2250; J2270; J2405; J2919; J3010; J3490; J7030; J7999; A9270; J1836